=== PATIENT | female | born 1980 | race Caucasian/White ===

== ENCOUNTER 2020-05-15 05:21 | Emergency (ER) | payer OTHER ==
[~2020-05-15] VITALS: Ht 157.5 cm; Wt 46.3 kg
[2020-05-15] MEDS ORDERED: TRAZ150T75 PO (05:46)
[2020-05-15] MEDS ORDERED: FLUO40CA8 PO (05:46)
[2020-05-15] MEDS ORDERED: LAMO100T2 PO (05:46)
[2020-05-15 05:57] LABS: *BILIRUBIN,URIN NEGATIVE (NEGATIVE); *BLOOD, URINE 2+ (NEGATIVE); *CLARITY,URINE CLOUDY (CLEAR); *COLOR,URINE YELLOW (YELLOW); *KETONES,URINE TRACE (NEGATIVE); LEUKOCYTE ESTERASE ,URINE 1+ (NEGATIVE); NITRITE, URINE NEGATIVE (NEGATIVE); PH,URINE 7.5 (5.0-8.0); UGLUCOSE NEGATIVE (NEGATIVE)
[2020-05-15 05:58] LABS: *URINE HCG, QUAL NEGATIVE (NEGATIVE)
[2020-05-15] MEDS ORDERED: IV NORMAL SALINE 1000 ML BAG IV ONE ×2 (06:00→08:00)
[2020-05-15] MEDS ORDERED: ONDANSETRON 4 MG/2 ML VIAL IV ONE ×2 (06:00→08:00)
[2020-05-15] MEDS ORDERED: KETOROLAC TROMETHAMINE 15 MG INJ IVP ONE (06:00)
[2020-05-15] MEDS ORDERED: KETOROLAC TROMETHAMINE 15 MG INJ ONE (06:16)
[2020-05-15] MEDS ORDERED: ONDANSETRON 4 MG/2 ML VIAL ONE ×2 (06:16→08:00)
[2020-05-15 06:27] LABS: BACTERIA,URINE FEW /HPF (NONE SEEN); RBC,URINE 50-80 /HPF (0-3)
[2020-05-15 06:28] LABS: SQUAMOUS EPITHELIAL CELL,UR MANY /HPF (NONE SEEN); URINE AMORPHOUS PHOSPHATES MANY /HPF
[2020-05-15 06:28] LABS: POTASSIUM 4.1 mmol/L (3.5-5.1)
[2020-05-15 06:39] LABS: BILIRUBIN,DIRECT 0.1 mg/dL (0.0-0.2); BILIRUBIN,TOTAL 0.4 mg/dL (0.2-1.0); TOTAL PROTEIN, SERUM 8.1 g/dL (6.4-8.2)
[2020-05-15 06:42] LABS: BASOPHILS % (AUTO) 0.3 % (0.0-2.0); EOSINOPHILS % (AUTO) 0.1 % (0.0-7.0); HEMATOCRIT 36.2 % (31.2-41.9); HEMOGLOBIN 12.5 g/dL (10.9-14.3); LYMPHOCYTES # (AUTO) 0.9 K/uL (20.0-40.0); LYMPHOCYTES % (AUTO) 9.6 % (20.5-51.5); MEAN CORPUSCULAR HEMOGLOBIN 31.4 uug (24.7-32.8); MEAN CORPUSCULAR HGB CONC 35 g/dL (32.3-35.6); MONOCYTES # (AUTO) 0.7 K/uL (2.0-10.0); MONOCYTES % (AUTO) 7.5 % (0.0-11.0); NEUTROPHILS # (AUTO) 7.6 K/uL (1.8-8.9); NEUTROPHILS % (AUTO) 82.5 % (38.5-71.5); PLATELET COUNT (AUTO) 382 K/uL (179-408); RED BLOOD CELL COUNT(AUTO) 3.98 MIL/uL (3.63-4.92); WHITE BLOOD COUNT (AUTO) 9.2 K/uL (3.8-11.8)
[2020-05-15] MEDS ORDERED: SWABABLE VALVE TRANSFER SET EA MC ONE (06:44)
[2020-05-15] MEDS ORDERED: IV NORMAL SALINE 250 ML IV ONE (06:44)
[2020-05-15] MEDS ORDERED: IOHEXOL 300MG/ML 100 ML INFUS..BTL ONE (06:44)
[2020-05-15] MEDS ORDERED: MORPHINE SULFATE 4 MG/1 ML DISP.SYRIN ONE (07:47)
[2020-05-15] MEDS ORDERED: MORPHINE SULFATE 4 MG/1 ML DISP.SYRIN IV ONE (08:00)
--- NOTE | 2020-05-15 08:09 | NUR ---
PT IS IN ROOM #1A. DR PENA EVALUATED THE PT.
[2020-05-15] MEDS ORDERED: KETOROLAC TROMETHAMINE 30 MG INJ IVP ONE (11:15)
[2020-05-15] MEDS ORDERED: KETOROLAC TROMETHAMINE 30 MG INJ ONE (11:20)
[2020-05-15 12:17] VITALS: BP 135/69
--- NOTE | 2020-05-15 12:17 | NUR ---
pt was d/c'D to home. d/c instructions given to the pt by dr Valdez.
== END 2020-05-15 12:18 | disposition home or self-care (01) ==
LOC: ER 05:27
DX: R10.32 Left lower quadrant pain (principal); R11.2 Nausea with vomiting, unspecified; N13.2 Hydronephrosis with renal and ureteral calculous obstruction; Z87.442 Personal history of urinary calculi
CPT/HCPCS: 36415; 74177; 80048; 80076; 81001; 83605; 83690; 84703; 85025; 87086; 96361; 96374; 96375; 99285; J1885 ×2; J2270; J2405 ×2; Q9967; A4663; J7030; J7050